=== PATIENT | female | born 1975 | race Caucasian/White ===

== ENCOUNTER 2017-02-27 09:03 | Outpatient (CLI) | payer BC, OTHER, SELFPAY | END 2017-02-27 09:04 | disposition home or self-care (01) | LOC: BICMAMMO 09:03 | PROVIDERS: ATTEND Obstetrics & Gynecology | DX: Z12.31 Encounter for screening mammogram for malignant neoplasm of breast (principal) | CPT/HCPCS: 77063; 77067 ==

== ENCOUNTER 2017-09-25 14:46 | Outpatient (CLI) | payer OTHER ==
[~2017-09-25 14:46] MED LIST: Gadobenate Dimeglumine 529 MG/1 ML (20ML VIAL) ONE
--- NOTE | 2017-09-25 17:58 | MRI ---
MRI ABDOMEN WITH AND WITHOUT IV CONTRAST 09/25/17 HISTORY: Liver lesion, right lobe; liver cyst. COMPARISON: 10/05/2015 from [facility]. FINDINGS: Multiple cysts in the liver with low T1, high T2 signal and no postcontrast enhancement remains stab le. No new lesions are seen. The focal area of enhancement in the right lobe of the liver measuring a bout 2.5 cm is stable. No high T2 signal is seen in this lesion but low T1 signal is again noted. No abnormal biliary ductal dilatation is seen. The gallbladder, kidneys, adrenal glands, spleen, and pancreas are normal. No ascites or lymphadenopa thy identified. The bone marrow signal is normal. IMPRESSION: 1. Stable exam. 2. Multiple hepatic cysts. 3. Enhancing lesion in the right lobe of the liver is stable. Differential diagnosis includes TH ID, FNH, adenoma. POS: [facility]
== END 2017-09-25 14:47 | disposition home or self-care (01) ==
LOC: SCSMRI 14:46
PROVIDERS: ATTEND Internal Medicine Gastroenterology
DX: K76.89 Other specified diseases of liver (principal); R63.5 Abnormal weight gain
CPT/HCPCS: 74183; A9579

== ENCOUNTER 2018-02-28 09:32 | Outpatient (CLI) | payer OTHER | END 2018-02-28 09:33 | disposition home or self-care (01) | LOC: BICMAMMO 09:32 | PROVIDERS: ATTEND Obstetrics & Gynecology | DX: Z12.31 Encounter for screening mammogram for malignant neoplasm of breast (principal); Z80.3 Family history of malignant neoplasm of breast | CPT/HCPCS: 77063; 77067 ==